=== PATIENT | female | born 1965 | race Caucasian/White ===

== ENCOUNTER 2018-02-24 10:20 | Emergency (ER) | payer MEDICARE, OTHER, MEDICAID ==
[2018-02-24] MEDS: DIPHTH/TET/ACEL PERTUSS (ADULT) 0.5 ML VIAL IM* (12:14)
[2018-02-24] MEDS: ACETAMINOPHEN 500 MG TAB PO (13:31)
== END 2018-02-24 13:36 | disposition home or self-care (01) ==
LOC: FTE 10:20
DX: S61.012A Laceration without foreign body of left thumb without damage to nail, initial encounter (principal); I10 Essential (primary) hypertension; E03.9 Hypothyroidism, unspecified; E11.9 Type 2 diabetes mellitus without complications; W26.0XXA Contact with knife, initial encounter; Y92.9 Unspecified place or not applicable; Z23 Encounter for immunization
CPT/HCPCS: 12001; 90471; 90715; 99283-25

== ENCOUNTER 2018-03-15 19:58 | Emergency (ER) | payer MEDICARE, OTHER ==
[2018-03-15] MEDS: BENOXINATE HCL/FLUORESCEIN SOD 5 ML OPHTH LEFT EYE (23:40)
[2018-03-15] MEDS: ERYTHROMYCIN 1 GM OPH OINT LEFT EYE (23:40)
== END 2018-03-16 00:10 | disposition home or self-care (01) ==
LOC: FTE 03-16 00:10
DX: H10.212 Acute toxic conjunctivitis, left eye (principal); T57.8X1A Toxic effect of other specified inorganic substances, accidental (unintentional), initial encounter
CPT/HCPCS: 99283

== ENCOUNTER 2018-11-20 13:50 | Emergency (ER) | payer MEDICARE, OTHER ==
[2018-11-20] MEDS: DIPHTH/TET/ACEL PERTUSS (ADULT) 0.5 ML VIAL IM* (14:40)
[2018-11-20] MEDS: CEFAZOLIN 1 GM INJ IM (14:40)
[2018-11-20] MEDS: LIDOCAINE 1% (MDV) 20 ML INJ SC (14:42)
== END 2018-11-20 16:39 | disposition home or self-care (01) ==
LOC: FTE 13:50
DX: S81.011A Laceration without foreign body, right knee, initial encounter (principal); I10 Essential (primary) hypertension; F17.210 Nicotine dependence, cigarettes, uncomplicated; S89.91XA Unspecified injury of right lower leg, initial encounter; W10.8XXA Fall (on) (from) other stairs and steps, initial encounter; Y92.9 Unspecified place or not applicable; Z23 Encounter for immunization; Z79.01 Long term (current) use of anticoagulants
CPT/HCPCS: 12002; 73562; 90471; 90715; 96372; 99284-25

== ENCOUNTER 2018-11-20 19:01 | Emergency (ER) | payer MEDICARE, OTHER ==
[2018-11-20] MEDS: HYDROCODONE/APAP (5/325) TAB PO ×3 (20:52→21:27)
== END 2018-11-20 22:02 | disposition home or self-care (01) ==
LOC: E/R 19:01
DX: S01.81XA Laceration without foreign body of other part of head, initial encounter (principal); S09.8XXA Other specified injuries of head, initial encounter; I10 Essential (primary) hypertension; F17.210 Nicotine dependence, cigarettes, uncomplicated; W01.0XXA Fall on same level from slipping, tripping and stumbling without subsequent striking against object, initial encounter; Y92.009 Unspecified place in unspecified non-institutional (private) residence as the place of occurrence of the external cause; Z79.01 Long term (current) use of anticoagulants
CPT/HCPCS: 12011; 70450; 73562; 90471; 90715; 96372; 99284-25

== ENCOUNTER 2018-11-29 12:21 | Emergency (ER) | payer MEDICARE, OTHER | END 2018-11-29 13:10 | disposition home or self-care (01) | LOC: FTE 12:21 | DX: Z48.02 Encounter for removal of sutures (principal); I10 Essential (primary) hypertension; F17.210 Nicotine dependence, cigarettes, uncomplicated | CPT/HCPCS: 99281 ==